=== PATIENT | male | born 1955 | race Caucasian/White ===

== ENCOUNTER → 2016-07-30 | Outpatient (CLI) | payer BC, OTHER ==
[~2016-07-30] MED LIST: ASPI81CH CHEW; ATOR40TA49 PO; COUM1TAB PO; LEVO.1 PO; LEVO100T4 PO; LEVO125T4 PO; LIPI40TA PO; METO50TA PO; ST JTAB PO; WARF-20 PO
[2016-07-30 10:36] LABS: INTERNATIONAL NORMALIZED RATIO 2.1 RATIO; PROTHROMBIN TIME - PATIENT 24.3 SEC (9.8-11.6)
== END ==
LOC: CLAB 10:07
PROVIDERS: ATTEND Physician Assistant Medical
DX: I48.0 Paroxysmal atrial fibrillation (principal); I63.9 Cerebral infarction, unspecified
CPT/HCPCS: 36415; 85610

== ENCOUNTER → 2016-08-06 | Outpatient (CLI) | payer BC, OTHER ==
[~2016-08-06] MED LIST changes: -COUM1TAB PO
[2016-08-06 11:01] LABS: INTERNATIONAL NORMALIZED RATIO 2.1 RATIO; PROTHROMBIN TIME - PATIENT 24.5 SEC (9.8-11.6)
== END ==
LOC: CLAB 10:30
PROVIDERS: ATTEND Physician Assistant Medical
DX: I48.0 Paroxysmal atrial fibrillation (principal); I63.9 Cerebral infarction, unspecified; Z51.81 Encounter for therapeutic drug level monitoring; Z79.01 Long term (current) use of anticoagulants
CPT/HCPCS: 36415; 85610

== ENCOUNTER → 2016-08-13 | Outpatient (CLI) | payer BC, OTHER ==
[2016-08-13 09:52] LABS: INTERNATIONAL NORMALIZED RATIO 2.1 RATIO; PROTHROMBIN TIME - PATIENT 24.4 SEC (9.8-11.6)
== END ==
LOC: CLAB 09:24
PROVIDERS: ATTEND Physician Assistant Medical
DX: I48.0 Paroxysmal atrial fibrillation (principal); I63.9 Cerebral infarction, unspecified
CPT/HCPCS: 36415; 85610

== ENCOUNTER → 2016-09-01 | Outpatient (CLI) | payer BC, OTHER ==
[~2016-09-01] MED LIST changes: -ATOR40TA49 PO; -LEVO100T4 PO; -ST JTAB PO
[2016-09-01 11:27] LABS: HEMATOCRIT 46.4 % (39.0-51.0); MEAN CELL VOLUME 82.5 FL (80.0-100.0); MEAN CORPUSCULAR HEMOGLOBIN 27.6 PG (27.0-34.0); MEAN CORPUSCULAR HGB CONC 33.4 % (32.0-36.0); PLATELET COUNT 251 TH/MM3 (150-450); RED BLOOD COUNT 5.63 MIL/MM3 (4.50-5.90); RED CELL DISTRIBUTION WIDTH 14.5 % (11.6-17.2); REVIEW FLAG FINAL; WHITE BLOOD COUNT 9.4 TH/MM3 (4.0-11.0)
[2016-09-01 11:36] LABS: INTERNATIONAL NORMALIZED RATIO 2.5 RATIO; PROTHROMBIN TIME - PATIENT 29.1 SEC (9.8-11.6)
[2016-09-01 11:48] LABS: ALT (GPT) 24 U/L (12-78); ANION GAP 4 MEQ/L (5-15); AST (GOT) 15 U/L (15-37); BICARBONATE 28.7 MEQ/L (21.0-32.0); BLOOD UREA NITROGEN 10 MG/DL (7-18); CHLORIDE 106 MEQ/L (98-107); GLOMERULAR FILTRATION RATE 61 ML/MIN (>89); GLUCOSE,FASTING 103 MG/DL (74-99); POTASSIUM 4.7 MEQ/L (3.5-5.1); SODIUM (NA) 139 MEQ/L (136-145)
[2016-09-01 11:58] LABS: ALKALINE PHOSPHATASE 71 U/L (45-117); HDL CHOLESTEROL 31.7 MG/DL (40.0-60.0); LDL CHOLESTEROL 45 MG/DL (0-99); TOTAL BILIRUBIN ADULT 0.4 MG/DL (0.2-1.0)
--- NOTE | 2016-09-02 17:44 | EKG ---
Date Performed: 09/01/2016 Time Performed: 13:20:58 PTAGE: 61 years EKG: SINUS BRADYCARDIA RIGHT BUNDLE BRANCH BLOCK Since previous tracing, no significant change n oted ABNORMAL ECG PREVIOUS TRACING : 09/06/2015 14.19 DOCTOR: Phani Reed Interpretating Date/Time 09/02/2016 17:43:37
== END ==
LOC: CLAB 11:00
PROVIDERS: ATTEND Family Medicine
DX: I48.0 Paroxysmal atrial fibrillation (principal); I63.9 Cerebral infarction, unspecified; I48.91 Unspecified atrial fibrillation; E78.5 Hyperlipidemia, unspecified; E03.9 Hypothyroidism, unspecified
CPT/HCPCS: 36415; 80053; 80061; 84443; 85027; 85610; 93005

== ENCOUNTER → 2016-09-08 | Outpatient (CLI) | payer BC, OTHER ==
[2016-09-08 11:03] LABS: INTERNATIONAL NORMALIZED RATIO 1.3 RATIO; PROTHROMBIN TIME - PATIENT 14.6 SEC (9.8-11.6)
== END ==
LOC: CLAB 10:27
PROVIDERS: ATTEND Family Medicine
DX: Z51.81 Encounter for therapeutic drug level monitoring (principal); Z79.01 Long term (current) use of anticoagulants; Z86.73 Personal history of transient ischemic attack (TIA), and cerebral infarction without residual deficits
CPT/HCPCS: 36415; 85610

== ENCOUNTER → 2016-09-16 | Outpatient (CLI) | payer BC, OTHER ==
[2016-09-16 11:31] LABS: INTERNATIONAL NORMALIZED RATIO 1.4 RATIO; PROTHROMBIN TIME - PATIENT 15.4 SEC (9.8-11.6)
== END ==
LOC: CLAB 10:54
PROVIDERS: ATTEND Family Medicine
DX: I63.9 Cerebral infarction, unspecified (principal); Z79.01 Long term (current) use of anticoagulants
CPT/HCPCS: 36415; 85610

== ENCOUNTER → 2016-09-18 | Outpatient (CLI) | payer BC, OTHER ==
[2016-09-18 10:51] LABS: INTERNATIONAL NORMALIZED RATIO 2.3 RATIO; PROTHROMBIN TIME - PATIENT 26.8 SEC (9.8-11.6)
== END ==
LOC: CLAB 10:23
PROVIDERS: ATTEND Family Medicine
DX: I63.09 Cerebral infarction due to thrombosis of other precerebral artery (principal); Z79.01 Long term (current) use of anticoagulants
CPT/HCPCS: 36415; 85610

== ENCOUNTER → 2016-09-29 | Outpatient (CLI) | payer BC, OTHER ==
[2016-09-29 11:33] LABS: INTERNATIONAL NORMALIZED RATIO 2.3 RATIO; PROTHROMBIN TIME - PATIENT 26.1 SEC (9.8-11.6)
== END ==
LOC: CLAB 10:44
PROVIDERS: ATTEND Family Medicine
DX: I63.9 Cerebral infarction, unspecified (principal); Z79.01 Long term (current) use of anticoagulants
CPT/HCPCS: 36415; 85610

== ENCOUNTER → 2016-10-30 | Outpatient (CLI) | payer BC, OTHER ==
[2016-10-30 12:22] LABS: INTERNATIONAL NORMALIZED RATIO 2.3 RATIO; PROTHROMBIN TIME - PATIENT 26.1 SEC (9.8-11.6)
== END ==
LOC: CLAB 11:54
PROVIDERS: ATTEND Family Medicine
DX: I63.9 Cerebral infarction, unspecified (principal); Z79.01 Long term (current) use of anticoagulants
CPT/HCPCS: 36415; 85610

== ENCOUNTER → 2016-11-28 | Outpatient (CLI) | payer BC, OTHER ==
[2016-11-28 11:34] LABS: INTERNATIONAL NORMALIZED RATIO 2.3 RATIO; PROTHROMBIN TIME - PATIENT 26.7 SEC (9.8-11.6)
== END ==
LOC: CLAB 10:54
PROVIDERS: ATTEND Family Medicine
DX: I63.9 Cerebral infarction, unspecified (principal); Z79.01 Long term (current) use of anticoagulants
CPT/HCPCS: 36415; 85610